=== PATIENT | female | born 1995 | race Two or more races ===

== ENCOUNTER 2021-01-20 11:12 | Emergency (ER) | payer OTHER ==
[~2021-01-20] VITALS: Ht 165.1 cm; Wt 83.0 kg
== END 2021-01-20 13:05 ==
LOC: ER 11:12
DX: L05.01 Pilonidal cyst with abscess (principal)

== ENCOUNTER 2022-07-30 16:54 | Emergency (ER) | payer OTHER ==
[~2022-07-30] VITALS: Ht 165.1 cm; Wt 79.4 kg
== END 2022-07-30 20:42 | disposition home or self-care (01) ==
LOC: ER 16:54
DX: R59.1 Generalized enlarged lymph nodes (principal); R53.81 Other malaise; Z20.822 Contact with and (suspected) exposure to COVID-19

== ENCOUNTER 2023-02-04 20:15 | Emergency (ER) | payer OTHER ==
[~2023-02-04] VITALS: Ht 165.1 cm; Wt 78.9 kg
[2023-02-04 23:31] LABS: MEAN CELL VOLUME 88.8 fL (80.00-100.00); MEAN CORPUSCULAR HEMOGLOBIN 30.4 pg (27.00-32.0); MEAN CORPUSCULAR HGB CONC 34.2 g/dl (32.0-36.0); PLATELET COUNT 255 K/uL (150-450); RED BLOOD COUNT 4.28 M/uL (4.00-6.00)
== END 2023-02-05 00:30 | disposition home or self-care (01) ==
LOC: ER 20:16
PROVIDERS: General Practice
DX: R59.1 Generalized enlarged lymph nodes (principal); R53.81 Other malaise

== ENCOUNTER 2023-11-11 09:03 | Outpatient (CLI) | payer OTHER ==
[2023-11-11 09:50] LABS: HEMATOCRIT 38.2 % (36.0-45.00); HEMOGLOBIN 12.8 g/dL (12.0-15.00); MEAN CELL VOLUME 89.3 fL (80.00-100.00); MEAN CORPUSCULAR HEMOGLOBIN 29.9 pg (27.00-32.0); MEAN CORPUSCULAR HGB CONC 33.5 g/dl (32.0-36.0); PLATELET COUNT 258 K/uL (150-450); RED BLOOD COUNT 4.28 M/uL (4.00-6.00); RED CELL DISTRIBUTION WIDTH 13.9 % (11.5-14.5)
[2023-11-11 10:05] LABS: URINE APPEARANCE Clear; URINE BILIRRUBIN Negative (NEGATIVE); URINE BLOOD Negative; URINE COLOR Yellow; URINE GLUCOSE Negative (NEGATIVE); URINE KETONE Negative (NEGATIVE); URINE LEUKOCYTE Trace; URINE NITRATE Negative; URINE PROTEIN Negative (NEGATIVE); URINE UROBILINOGEN 0.2 E.U./dl
[2023-11-11 10:10] LABS: URINE BACTERIA 579.5 uL (0.0-1933); URINE EPITHELIAL CELLS 41.4 uL (0.0-38.8); URINE RBC 29.9 uL (0.0-20.8); URINE WBC 34.4 uL (0.0-23.2)
[2023-11-11 10:27] LABS: URINE CAST 0.15 uL (0.0-1.40)
[2023-11-11 11:35] LABS: ALBUMIN 3.9 gm/dL (3.4-5.0); ALKALINE PHOSPHATASE 61 U/L (50-136); ALT/SGPT 61 U/L (12-78); ANION GAP 10 (10.0-20.0); AST/SGOT 70 U/L (15-37); BILIRUBIN TOTAL 0.39 mg/dL (0.3-1.2); BLOOD UREA NITROGEN 9 mg/dL (7-18); BUN CREA RATIO 13 (7.0-25.0); CALCIUM 8.8 mg/dL (8.5-10.1); CARBON DIOXIDE 29 mEq/L (21-32); CHLORIDE 105 mmol/L (98-107); CHOL HDL RATIO 2.8 (0-5.0); CHOLESTEROL 167 mg/dL (0-200); CREATININE SERUM 0.67 mg/dL (0.55-1.02); GLOBULINA 4.4 G/DL (2.4-3.5); GLUCOSE FASTING 80 mg/dL (65-100); HDL 59 mg/dl (40-60); LDL 100 mg/dl (0-130); OSMOLALITY SERUM 277 MOSM/KG (275-295); POTASSIUM 3.88 mEq/L (3.5-5.1); SODIUM 140 mmol/L (136-145); TOTAL PROTEIN 8.3 gm/dL (6.4-8.2); TRIGLYCERIDES 38 mg/dL (0-150); VLDL 7 (0-39)
[2023-11-11 11:36] LABS: HCG QUANTITATIVE < 1 mUI/mL (1-3)
== END 2023-11-11 09:09 | disposition home or self-care (01) ==
LOC: LAB 09:03
DX: E28.2 Polycystic ovarian syndrome (principal); Z13.220 Encounter for screening for lipoid disorders; Z13.29 Encounter for screening for other suspected endocrine disorder; Z13.1 Encounter for screening for diabetes mellitus; E55.9 Vitamin D deficiency, unspecified

== ENCOUNTER → 2024-04-15 10:56 | Outpatient (CLI) | payer OTHER ==
[2024-04-17 08:08] LABS: hav igm Negative (Negative); hcv Non Reactive (Non Reactive); hep b c Negative (Negative); hep b s ag Negative (Negative)
== END | disposition home or self-care (01) ==
LOC: LAB 10:56
DX: Z11.3 Encounter for screening for infections with a predominantly sexual mode of transmission (principal)

== ENCOUNTER → 2024-07-01 08:58 | Outpatient (CLI) | payer OTHER ==
[2024-07-01 10:35] LABS: BASO % 0.2 % (0.1-1.2); EOS # 0.08 (0.04-0.54); EOS % 1.3 % (0.7-7.0); HEMATOCRIT 40.1 % (34.1-44.9); HEMOGLOBIN 13.4 g/dL (11.2-15.7); LYMPH # 1.91 (1.18-3.74); LYMPH % 30.1 % (19.3-53.1); MONO # 0.34 (0.24-0.82); MONO % 5.4 % (4.7-12.5); NEUT % 62.8 % (34.0-71.1); PLATELET COUNT 247 K/uL (163-369); RED BLOOD COUNT 4.46 M/uL (3.93-5.22); RED CELL DISTRIBUTION WIDTH 12.8 % (11.6-14.4)
[2024-07-01 10:39] LABS: PH,URINE 7.5 (5.0-8.0); URINE APPEARANCE Clear; URINE BILIRRUBIN Negative (NEGATIVE); URINE BLOOD Negative; URINE COLOR Yellow; URINE GLUCOSE Negative (NEGATIVE); URINE KETONE Negative (NEGATIVE); URINE LEUKOCYTE Trace; URINE NITRATE Negative; URINE PROTEIN Trace (NEGATIVE); URINE UROBILINOGEN 0.2 E.U./dl
[2024-07-01 10:40] LABS: URINE BACTERIA 977.9 uL (0.0-1933); URINE EPITHELIAL CELLS 49.8 uL (0.0-38.8); URINE RBC 36.8 uL (0.0-20.8); URINE WBC 19.4 uL (0.0-23.2)
[2024-07-01 10:46] LABS: URINE CAST 0.44 uL (0.0-1.40)
[2024-07-01 12:09] LABS: ALBUMIN 3.8 gm/dL (3.4-5.0); BILIRUBIN TOTAL 0.44 mg/dL (0.3-1.2); CALCIUM 8.5 mg/dL (8.5-10.1); CHOL HDL RATIO 3.3 (0-5.0); CREATININE SERUM 0.59 mg/dL (0.55-1.02); GFR 120.5; GLOBULINA 4.5 G/DL (2.4-3.5); POTASSIUM 4.19 mEq/L (3.5-5.1); T4 FREE 1.06 NG/ML (0.76-1.46); TOTAL PROTEIN 8.3 gm/dL (6.4-8.2); TSH 1.56 uIU/mL (0.358-3.74)
== END | disposition home or self-care (01) ==
LOC: LAB 08:58
DX: D64.9 Anemia, unspecified (principal); R73.01 Impaired fasting glucose; R73.09 Other abnormal glucose; I10 Essential (primary) hypertension; E03.9 Hypothyroidism, unspecified; N39.0 Urinary tract infection, site not specified; E78.2 Mixed hyperlipidemia; E78.5 Hyperlipidemia, unspecified; N18.1 Chronic kidney disease, stage 1; T78.40XA Allergy, unspecified, initial encounter